=== PATIENT | male | born 1950 | race Caucasian/White ===

== ENCOUNTER 2017-01-12 10:12 | Emergency (ER) | payer OTHER ==
--- NOTE | 2017-01-12 10:18 | ED.REPORT ---
HPI-Chest Pain 40 and Over Date of Service Jan 12, 2017 ED Provider: The patient is a 66 year old male with history of coronary artery disease with cardiac catheterization (20+years ago) but no stents, who presents to the emergency department after he had multiple syncopal episodes today. The patient woke up this morning around 0200 with cramps in his right leg. The pain became more severe, he got up to walk around and after walking out of the room he lost consciousness and fell to the ground. His spouse found him on the ground. He rolled over to get up then fell down the stairs and hit his head. The patient lost consciousness sometime during the fall. When his spouse got to him the patient was able to speak and respond to questions. His spouse assisted him to the cough the patient was able to fall asleep. He called his doctor in [place] and was scheduled to see him at 1030. This morning on their way out of the house the patient lost consciousness again when he was walking to use the restroom. They got in the car to head to his doctor's office and en route he lost consciousness again. Right before he passed out each time he felt tingling in his hands bilaterally and also became diaphoretic. At this time he complains of head pain, nausea, and left lower back pain. He did not experience any chest pain, shortness of breath, vomiting, vision changes, incontinence, focal weakness or speech changes. The patient does report he has been outside a lot over the last few days and may be dehydrated. He has never had similar symptoms in the past. He does not take any blood thinners. Nursing Notes Stated Complaint: FALL/VERTIGO Nursing Notes Reviewed: Yes Allergies: Coded Allergies: No Known Allergies (Unverified , 01/12/17) General Time Seen by MD: 10:18 Chief Complaint Other (multiple syncopal episodes) Hx Obtained From: Patient, Spouse Arrived By: Wheelchair Sudden in Onset?: Yes Onset Occurred: 9 - 12 hours ago Symptom Duration: Intermittent Quality: Painful Radiation: : Does not radiate Severity: Current: Moderate Severity: Maximum: Moderate Recent Healthcare: No recent doctor visit, No recent hospitalization Similar Sx Previous: No Past Medical History Past Medical History Coronary artery disease Past Surgical History Cardiac cath, no stents Family History Noncontributory Smoking History Unknown if Ever Smoker Social History Other Social History: Good social support, Local resident Ambulatory Status Independent Review of Systems Respiratory: Denies: Shortness of breath Cardiovascular: Denies: Chest pain GI: Reports: Nausea, Denies: Vomiting Skin: Reports Diaphoresis Neurologic: Reports: Change LOC, Headache, Numbness, Syncope, Denies: Bladder dysfunction, Bowel dysfunction, Slurred speech, Unable to speak, Vision change Complete sys rev & neg: except as marked. Physical Exam Initial Vital Signs Vital Signs (First) Date Time Temp Pulse Resp B/P Pulse Ox O2 Delivery O2 Flow Rate FiO2 01/12/17 10:33 36.1 71 16 148/80 100 Room Air Initial VS: Reviewed ENT: Mucous membranes moist, Conjunctiva normal, No scleral icterus Extremities: Vascular intact, Neuro intact Skin: Warm, Dry, No cyanosis Psychiatric: Mood/affect normal, Behavior normal, Normal thought content General/Constitutional: Awake, Alert, No acute distress, Well appearing Respiratory / Chest: Atraumatic, Breath sounds NL, Breath sounds = bilat, No respiratory distress, No rales, No rhonchi, No wheezing, No stridor, No chest tenderness Cardiovascular: Heart rate NL, Regular rhythm, Heart sounds NL, No murmurs, Peripheral circulation NL, Pulses = bilaterally, No gross BP differential Abdomen: Atraumatic, Soft, Non-tender, McBurney's non-tender, No guarding, No rebound, BS normoactive, No distention, No hernia, No palpable mass Neck: Atraumatic, Supple, Full range of motion, No swelling, Non-tender, No masses, No JVD Back: No midline vertebral tend Abrasions over his left lower back. Neurologic: Oriented X3, Speech NL, No motor deficits, No sensory deficits, CN II - XII intact, Memory NL Head / Eyes: Normocephalic, PERRL, EOMI There is a 2 cm laceration to his occipital scalp. No galea involvement. Ankle / Foot: Neurologic intact, Vascular intact Abrasions to left lateral ankle. Interpretation & Diagnostics Lab Results Interpretation Result Diagram: 01/12/17 1247 01/12/17 1046 Test 01/12/17 10:46 01/12/17 12:47 White Blood Count 12.2th/mm3 (3.8-10.1) Red Blood Count 4.34mil/mm3 (4.40-5.80) Mean Corpuscular Volume 93.1fL (81-100) Mean Corpuscular Hemoglobin 32.3pg (27.0-35.0) Mean Corpuscular Hemoglobin Concent 34.7% (32.0-37.0) Red Cell Distribution Width 12.7% (12.3-15.4) Platelet Count 168bil/L (150-400) Neutrophils (%) (Auto) 85.2% (40-74) Lymphocytes (%) (Auto) 7.4% (14-46) Monocytes (%) (Auto) 7.0% (4-12) Eosinophils (%) (Auto) 0% (0-5) Basophils (%) (Auto) 0.2% (0-3) Prothrombin Time 10.1sec (8.1-12.5) Prothromb Time International Ratio 0.95ratio Sodium Level 134mEq/L (134-144) Potassium Level 4.3mEq/L (3.5-5.2) Chloride Level 96mEq/L (97-108) Carbon Dioxide Level 21mmol/L (18-29) Blood Urea Nitrogen 9mg/dL (8-27) Creatinine 0.71mg/dL (0.76-1.27) Estimat Glomerular Filtration Rate 119mL/min (>59) Glucose Level 185mg/dL (60-99) Calcium Level 9.3mg/dL (8.5-10.1) Magnesium Level 2.0mg/dL (1.6-2.6) Total Bilirubin 0.7mg/dL (0.0-1.2) Aspartate Amino Transf (AST/SGOT) 82U/L (0-50) Alanine Aminotransferase (ALT/SGPT) 48U/L (0-44) Alkaline Phosphatase 62U/L (25-160) Total Protein 7.0g/dL (6.4-8.4) Albumin 4.4g/dL (3.4-5.0) Hemoglobin 12.5g/dL (13.8-17.2) Hematocrit 37.0% (41.0-50.0) Troponin T < 0.010ug/L (0.0-0.011) ECG Interpretation ECG Interpretation: Sinus rhythm with a rate of [address] T changes OR interval 221 QTc 458 Time: 10:21 Interpreted by: ED physician X-Ray Chest Interpretation Chest Xray Interpretation: IMPRESSION: No acute cardiopulmonary disease. Dictated by: Dustin Romero M.D. on 01/12/2017 at 11:09 Interpretation / Wet Read by: Interpret - Radiologist CT Head Interpretation IMPRESSION: No trauma found. Dictated by: Anshu Sweeney M.D. on 01/12/2017 at 12:28 CT Abd / Pelvis Interpretation IMPRESSION: Left lateral flank and hip region soft tissue contusion, no underlying fracture, no solid or hollow organ acute trauma found. Dictated by: Anshu Sweeney M.D. on 01/12/2017 at 12:29 Interpretation / Wet Read by: Interpret - Radiologist Procedures Laceration Management Time: 12:56 Procedure Performed by: ED physician Consent / Setup / Site Prep: Consent from patient, Time-out performed, Hand hygiene observed Location of Wound: occipital scalp Wound Length: 2 cm Digital Block: No Wound Preparation: Hibiclens - Chlorhexidine, Normal saline Debridement: None Irrigation: Copious Foreign Body Explore / Removal: Explored for foreign body Undermining / Margins: Flaps aligned Repair Skin: Sarbjit # Sutures - Skin: 4 Closure Layers: 1 Post-Procedure / Complications: No complications, Condition improved, Tolerated procedure well, Patient stable Re-Eval/Medical Decision Med Decision/Clinical Course 66-year-old male history of CAD 20 years ago with stents presenting with multiple syncopal events today. He reports he has been working extensively outside preparing for his wedding the past couple days. This morning he had some leg cramps last night got up and had a syncopal event. He denies any cardiac prodrome. He then syncopized again and fell down and hit his head per partner. Further syncopal events route to the hospital. On arrival he was found to be orthostatic. CT head showed no acute pathology. His labs are unremarkable. Troponins were negative 2. No EKG changes. He had no focal neuro deficits. No cardiac prodrome. She spent orthostatic due to dehydration due to excessive for the last couple days. Patient felt much better after 2 L normal saline. I gave him the option of admission, patient declines requested to go home. This is likely orthostatic. Will follow-up his primary doctor and return if any new symptoms, recurrence of symptoms or any other new or worsening symptoms. He is advised to have his sarbjit removed in one week. Source of Hx: Old records, Family Time of Eval: 12:52 Re-Evaluation/Progress Note: Rechecked the patient. Discussed workup results and plan for lac repair. Time of Eval: 13:35 Re-Evaluation/Progress Note: Repeat troponin is negative. Will discharge home. Counseled Regarding: Diagnosis, Lab results, Need for follow-up, When/why to return to ED Discharge & Departure Primary Impression: Syncope Syncope type: unspecified Qualified Code: R55 - Syncope and collapse Additional Impressions: Fall Encounter type: initial encounter Qualified Code: W19.XXXA - Unspecified fall, initial encounter Scalp laceration Encounter type: initial encounter Qualified Code: S01.01XA - Laceration without foreign body of scalp, initial encounter Contusion Encounter type: initial encounter Contusion area: lower back Qualified Code : S30.0XXA - Contusion of lower back and pelvis, initial encounter Abrasions of multiple sites Concussion Encounter type: initial encounter Loss of consciousness presence/duration: with LOC of 30 min or less Qualified Code: S06.0X1A - Concussion with loss of consciousness of 30 minutes or less, initial encounter Disposition: Home Discharge Condition All VS Reviewed: Yes Condition: Stable Patient Instructions: Contusion in Adults (ED), Head Injury (ED), Laceration ( ED), Syncope (ED) Additional Instructions: Thank you for entrusting us with your care today. Your workup today included: blood work, EKG, chest x-ray, head CT, and abdominal /pelvis CT. The results are reassuring. There is no evidence of any fractures or bleeding. Your symptoms may have been related to dehydration. Make sure to drink plenty of fluids. Followup with your regular doctor in the next 2-3 days for re-evaluation. Return to the emergency department for recurrent symptoms, chest pain, shortness of breath, increased pain, vomiting, visual changes, or any other new or concerning symptoms. Scribe Attestation Portions of this note were transcribed by Essie Causey. I, Dr. Smart personally performed the history, physical exam and medical decision-making; I reviewed and confirmed the accuracy of the information in the transcribed note. Signed by: Guillermo Mack, 01/12/2017 at 1400. Ezekiel Smart MD Jan 12, 2017 10:18 Essie Causey Jan 12, 2017 10:27
[2017-01-12] MEDS ORDERED: 0.9% Sodium Chloride 1,000 ML IV ONE ×2 (10:32→11:55)
[2017-01-12 10:33] VITALS: BP 148/80; PULSE 71; RESP 16; O2SAT 100
[2017-01-12] MEDS ORDERED: Ondansetron 2 mg/mL 2 mL Inj ONE (10:47)
[2017-01-12 10:54] VITALS: BP_SYST 117; BP_SYST 148; BP_DIAS 80; BP_DIAS 82; PULSE 63; PULSE 75
[2017-01-12 10:54] LABS: BASOPHILS % (AUTO) 0.2 % (0-3); EOSINOPHILS % (AUTO) 0 % (0-5); Mean Corpuscular Hemoglobin 32.3 pg (27.0-35.0); Mean Corpuscular Volume 93.1 fL (81-100); NEUTROPHILS % (AUTO) 85.2 % (40-74); Platelet Count 168 bil/L (150-400)
[2017-01-12] MEDS ORDERED: TdaP Vaccine 0.5 mL Inj IM ONE (10:55)
[2017-01-12 11:08] LABS: INR 0.95 ratio
[2017-01-12 11:16] LABS: TROPONIN T 0.01 ug/L (0.0-0.011)
--- NOTE | 2017-01-12 11:21 | DRSVH ---
PROCEDURE: X-RAY CHEST ONE VIEW, PORTABLE ([id number]) INDICATIONS: syncope TECHNIQUE: One view of the chest was acquired. COMPARISON: None. FINDINGS: Surgical changes and devices: None. Lungs and pleura: No pleural effusions or pneumothorax. Lungs are clear. Mediastinum: Mediastinal contours appear normal. Heart size is normal. Bones and chest wall: No suspicious bony lesions. Overlying soft tissues appear unremarkable. IMPRESSION: No acute cardiopulmonary disease. Dictated by: Dustin Romero M.D. on 01/12/2017 at 11:09 Approved by: Dustin Romero M.D. on 01/12/2017 at 11:10
[2017-01-12 11:44] VITALS: BP 137/78; PULSE 66; PULSE 68
--- NOTE | 2017-01-12 12:31 | DRSVH ---
PROCEDURE: CT BRAIN WITHOUT CONTRAST ([id number]) INDICATIONS: head trauma TECHNIQUE: Noncontrast 4.5 mm thick angled axial sections acquired from the foramen magnum to the vertex, with c oronal reformats. COMPARISON: None. FINDINGS: Image quality: Excellent. CSF spaces: Basal cisterns are patent. No extra-axial fluid collections. Ventricles are normal in size and shape. Brain: No midline shift. No intracranial masses or hemorrhage. Pike-white matter interface is norm al. Skull and face: Calvarium and visualized facial bones are intact, without suspicious lesions. Sinuses: Visualized sinuses and mastoids are clear. IMPRESSION: No trauma found. Dictated by: Anshu Sweeney M.D. on 01/12/2017 at 12:28 Approved by: Anshu Sweeney M.D. on 01/12/2017 at 12:29
--- NOTE | 2017-01-12 12:33 | DRSVH ---
PROCEDURE: CT ABDOMEN AND PELVIS WITH CONTRAST TRAUMA (PNL [id number]) INDICATIONS: trauma, Left lower back hematoma, syncope TECHNIQUE: After the administration of intravenous contrast, 5 mm thick sections acquired from the diaphragms to the symphysis. 5 mm thick coronal and sagittal reformats were acquired. Optional 10-minute delayed imaging may be performed from the kidneys to the bladder. For radiation dose reduction, the followi ng was used: automated exposure control, adjustment of mA and/or kV according to patient size. COMPARISON: None. FINDINGS: Image quality: Excellent. ABDOMEN: Lung bases: Lung bases are clear. Heart size is normal. No pericardial effusion. Inferior ribs ar e intact. No basal pleural effusions or pneumothorax. Solid organs: Liver and spleen are normal in size and enhancement, without lacerations. Gallbladder appears normal. Biliary system is non-dilated. Pancreas enhances normally, without transection. N o adrenal hematomas. Both kidneys enhance normally, without hydronephrosis or lacerations. Peritoneum and bowel: No free fluid or air. Unenhanced bowel loops demonstrate normal wall thicknes s and caliber. Nodes and vessels: No retroperitoneal or mesenteric adenopathy. Aorta and inferior vena cava are no rmal in size and enhancement. Miscellaneous: No ventral hernias. There is what appears to be soft tissue contusion along the left lateral abdomen/flank area. PELVIS: Genitourinary: Bladder wall thickness is normal. Miscellaneous: No inguinal hernias or adenopathy. Soft tissue contusion from the flank area extends into the pelvis adjacent to the left iliac crest and below. Bones: Pelvic ring and hip joints appear intact. No vertebral compression fractures. IMPRESSION: Left lateral flank and hip region soft tissue contusion, no underlying fracture, no solid or hollow organ acute trauma found. Dictated by: Anshu Sweeney M.D. on 01/12/2017 at 12:29 Approved by: Anshu Sweeney M.D. on 01/12/2017 at 12:31
[2017-01-12 14:02] VITALS: BP 154/68; PULSE 67; RESP 16; O2SAT 98
== END 2017-01-12 14:03 | disposition home or self-care (01) ==
LOC: SED 10:12
DX: S06.0X1A Concussion with loss of consciousness of 30 minutes or less, initial encounter (principal); S01.01XA Laceration without foreign body of scalp, initial encounter; S30.0XXA Contusion of lower back and pelvis, initial encounter; T14.8 Other injury of unspecified body region; R55 Syncope and collapse; W10.8XXA Fall (on) (from) other stairs and steps, initial encounter; Y93.01 Activity, walking, marching and hiking; Y92.009 Unspecified place in unspecified non-institutional (private) residence as the place of occurrence of the external cause; Y99.8 Other external cause status; I25.10 Atherosclerotic heart disease of native coronary artery without angina pectoris; Z23 Encounter for immunization
CPT/HCPCS: 12001; 36415; 70450; 71010; 74177; 80053; 83735; 84484; 85014; 85018; 85025; 85610; 86850; 90471; 90715; 93005; 96361; 96374; 99285; J2405; J7030; Q9967